=== PATIENT | female | born 2000 | race Caucasian/White ===

== ENCOUNTER 2025-09-08 09:41 | Outpatient (CLI) | payer BC ==
[2025-09-08 10:10] LABS: #Basophils 0.1 thou/uL (0.0-0.2); #Eosinophils 0.1 thou/uL (0.0-0.7); #Lymphocytes 1.8 thou/uL (1.20-3.40); #Monocytes 0.4 thou/uL (0.11-0.59); #Neutrophils 8.2 thou/uL (1.40-6.50); %Basophils 0.7 % (0.0-1.0); %Eosinophils 1.1 % (0.0-10.0); %Lymphocytes 17.0 % (21.0-51.0); %Monocytes 3.4 % (0.0-10.0); %Neutrophils 77.8 % (42.0-75.0); Hematocrit 34.3 % (36.0-47.0); Hemoglobin 11.4 g/dL (12.0-16.0); Mean Corpuscular Hemoglobin 29.0 pg (27.0-31.0); Mean Corpuscular Volume 87.0 fl (78.0-98.0); Platelet Count 242 10x3/uL (130-400); Red Blood Cell (RBC) Count 3.94 mill/uL (4.20-5.40); White Blood Cell (WBC) Count 10.6 10x3/uL (4.8-10.8)
[2025-09-08 10:13] LABS: Glucose, Urine (Dipstick) Negative (Negative); Leukocyte Negative (Negative); Protein, Urine (Dipstick) Negative (Neg-Trace); Specific Gravity, Urine 1.020 (1.005-1.030)
[2025-09-08 10:21] LABS: Bacteria/HPF Rare-Few HPF (None Seen); RBC/HPF 0-3 HPF (0-3); WBC/HPF 0-3 HPF (0-3)
[2025-09-08 10:22] LABS: ALT (SGPT) 15 U/L (Less than 34); AST (SGOT) 18 U/L (11-34); Albumin 3.5 g/dL (3.1-4.5); Alkaline Phosphatase 73 U/L (40-110); Anion Gap 14 mmol/L (10-20); BUN (Urea Nitrogen) 6 mg/dL (7.0-18.7); Bilirubin, Total 0.6 mg/dL (0.3-1.2); Calc. Creatinine Clearance 0 mL/min (70-130); Calcium 8.7 mg/dL (7.8-10.44); Carbon Dioxide 20 mmol/L (22-29); Cardiac Risk 3.0 (Less than 4.5); Chloride 105 mmol/L (98-107); Cholesterol 205 mg/dl (< 200 Desired); Globulin 2.8 g/dL (2.4-3.5); Glucose 79 mg/dL (70-105); HDL Cholesterol 69 mg/dL (>60 Neg Risk); LDL Cholesterol, Calculated 107 mg/dL; Potassium 4.0 mmol/L (3.5-5.1); Sodium 135 mmol/L (136-145); Triglycerides 146 mg/dL (Less than 150)
== END 2025-09-08 09:42 | disposition home or self-care (01) ==
LOC: MADLAB 09:41
PROVIDERS: ATTEND Family Medicine
DX: Z00.00 Encounter for general adult medical examination without abnormal findings (principal)
CPT/HCPCS: 36415; 80053; 80061; 81001; 85025